=== PATIENT | female | born 1955 | race Caucasian/White ===

== ENCOUNTER 2019-01-03 17:25 | Emergency (ER) | payer BC, OTHER | END 2019-01-03 19:20 | disposition home or self-care (01) | LOC: FTE 17:25 | DX: S83.8X2S Sprain of other specified parts of left knee, sequela (principal); R60.0 Localized edema; X58.XXXS Exposure to other specified factors, sequela; Y92.9 Unspecified place or not applicable | CPT/HCPCS: 93971; 99284-25 ==